=== PATIENT | male | born 1980 | race Caucasian/White ===

== ENCOUNTER 2019-10-11 14:49 | Emergency (ER) | payer BC ==
--- NOTE | 2019-10-11 15:44 | EDM.PDOC ---
Scribed by Kailee Echavarria 10/11/19 1543 for Ashley Soto NP ED HPI GENERAL MEDICAL PROBLEM - General Chief Complaint: Lower Extremity Injury/Pain Stated Complaint: RT ANKLE PAIN Time Seen by Provider: 10/11/19 14:55 Source of Information: Reports: Patient, RN, RN Notes Reviewed History Limitations: Reports: No Limitations - History of Present Illness INITIAL COMMENTS - FREE TEXT/NARRATIVE: Patient is a 38-year-old male who presents to ED with right ankle pain. Patient reports jumping off a roof into a snow bank was not as deep as he expected x1 hour. He reports immediate pain and inability to move his right foot. No previous ankle injury. Pain is 5/10. No pain modalities. Pain is worse with movement and better with rest. Onset: Today Location: Reports: Lower Extremity, Right Quality: Reports: Ache Severity: Moderate Improves with: Reports: None Worsens with: Reports: None Associated Symptoms: Reports: No Other Symptoms Right Ankle Pain Score (Numeric/FACES): 7 - Related Data Allergies Allergy/AdvReac Type Severity Reaction Status Date / Time No Known Allergies Allergy Verified 10/11/19 14:55 Review of Systems - Review of Systems Review Of Systems: Comprehensive ROS is negative, except as noted in HPI. ED EXAM, GENERAL - Physical Exam Exam: See Below Exam Limited By: No Limitations General Appearance: Alert, WD/WN, Mild Distress Extremities: Joint Swelling (right lateral malleolus. Swelling with moderate bruising noted. Reduced range of motion due to pain. ) Neurological: Alert, Oriented Psychiatric: Normal Affect, Normal Mood Skin Exam: Warm, Intact ED TRAUMA EXTREMITY PROCEDURES - Splinting Right Lower Extremity Splint Site: right ankle Pre-Procedure NV Status: Normal Post-Procedure NV Status: Normal Splint Material: Fiberglass Splint Design: Sugar Tong Applied & Form Fitted By: Provider Provider Post-Splint Application NV Check: NV Status Normal Complications: No Course - Vital Signs Last Recorded V/S: Last Vital Signs Temp 97.4 F 10/11/19 14:58 Pulse 110 H 10/11/19 14:58 Resp 18 10/11/19 14:58 BP 172/112 H 10/11/19 14:58 Pulse Ox 96 10/11/19 14:58 - Orders/Labs/Meds Orders: Active Orders 24 hr Category Date Time Status Ankle 2V Rt [CR] Urgent Exams 10/11/19 14:55 Ordered - Radiology Interpretation Free Text/Narrative:: Right ankle x-ray: There is a fracture of the distal fibula with lateral soft tissue swelling present. No evidence of acute dislocation. Joint effusion is present. No rad report. - Re-Assessments/Exams Free Text/Narrative Re-Assessment/Exam: X-rays reviewed with patient. Sugar-tong was applied. Follow up with PCP for ortho referral in 2 weeks. Apply ice every 20 minutes on and off while awake. Elevate the leg above the heart when sitting or lying down. Ibuprofen and Tylenol p.r.n. for pain. Use crutches as measured. Encouraged to continue taking his blood pressure medications as prescribed as he did not prior to Er visit. Departure - Departure Time of Disposition: 15:38 Disposition: Home, Self-Care 01 Condition: Good Clinical Impression: Fracture of right fibula - Discharge Information Instructions: Crutch Use, Adult, [id number], Tibial and Fibular Fractures Forms: ED Department Discharge Additional Instructions: Follow up with PCP for ortho referral in 2 weeks. Apply ice every 20 minutes on and off while awake. Elevate the leg above the heart when sitting or lying down. Ibuprofen and Tylenol p.r.n. for pain. Use crutches as measured. Sepsis Event Note - Focused Exam Vital Signs: Vital Signs Temp Pulse Resp BP Pulse Ox 10/11/19 14:58 97.4 F 110 H 18 172/112 H 96 Date Exam was Performed: 10/11/19 Time Exam was Performed: 15:43 - My Orders Last 24 Hours: My Active Orders 10/11/19 14:55 Ankle 2V Rt [CR] Urgent - Assessment/Plan Last 24 Hours: My Active Orders 10/11/19 14:55 Ankle 2V Rt [CR] Urgent I have read and agree with the documentation that has been completed regarding this visit. By signing this record, I attest that the documentation was completed in my physical presence and is an accurate record of the encounter.
== END 2019-10-11 15:38 | disposition home or self-care (01) ==
LOC: DL.ED 14:49
DX: S82.831A Other fracture of upper and lower end of right fibula, initial encounter for closed fracture (principal); W17.89XA Other fall from one level to another, initial encounter
CPT/HCPCS: 29515; 73600-RT; 99283-25